=== PATIENT | female | born 1965 | race Caucasian/White ===

== ENCOUNTER 2016-04-24 13:47 | Emergency (ER) | payer BC ==
[~2016-04-24] VITALS: Ht 165.1 cm; Wt 87.2 kg
[~2016-04-24 13:47] MED LIST: BIOT1CAP8 PO; CHOL100010 PO; LAMO100T16 PO; POTASSIUM PO; PRM625 PO
[2016-04-24 13:54] VITALS: TEMP 36.8; Ht 165.1 cm; Wt 87.2 kg
[2016-04-24] MEDS ORDERED: NAPR1CAP12 PO (14:05)
[2016-04-24] MEDS ORDERED: LMC/150 PO (14:05)
[2016-04-24] MEDS ORDERED: VITACAP26 PO (14:05)
[2016-04-24] MEDS ORDERED: LAMO25TA PO (14:05)
[2016-04-24] MEDS ORDERED: ONDANSETRON INJ 2 MG/ML 2 ML VIAL IV STA (14:10)
[2016-04-24] MEDS ORDERED: SODIUM CHLORIDE 0.9% 1000ML 500 ML IV STA (14:10)
[2016-04-24] MEDS ORDERED: NITROGLYCERIN OINT 2% 1GM PACKET EXT STA (14:10)
[2016-04-24 14:19] VITALS: O2SAT 97
[2016-04-24 14:20] LABS: HEMATOCRIT 35.5 % (37-47); MEAN CORPUSCULAR HEMOGLOBIN 28.6 pg (25-34); MEAN CORPUSCULAR HGB CONC 33.2 g/dl (32-36); PLATELET COUNT 168 K/uL (130-400); RED BLOOD COUNT 4.13 M/uL (4.2-5.4); WHITE BLOOD COUNT 5.47 K/uL (4.8-10.8)
--- NOTE | 2016-04-24 14:28 | DIAGNOSTIC IMAGING REPORT ---
CHEST ONE VIEW PORTABLE CLINICAL HISTORY: CHEST PAIN COMPARISON STUDY: 08/24/2014 FINDINGS: The cardiac and mediastinal contours are normal. There is no evidence of focal pulmonary consolidation. There is no evidence of failure. No pleural effusions are visualized.[ IMPRESSION: No active disease in the chest. Electronically signed by: Micky Davidsno M.D. 04/24/2016 2:27 PM Dictated Date/Time: 04/24/2016 2:26 PM
--- NOTE | 2016-04-24 14:34 | EMERGENCY ROOM VISIT NOTE ---
History Report prepared by Fletcher: Sylvain Adams Under the Supervision of: Dr. Hans Swain M.D. First contact with patient: 14:06 Chief Complaint: CARDIAC ASSESSMENT Stated Complaint: TIGHTNESS IN CHEST, PAIN IN BACK, HEARTBURN X3 DAY Nursing Triage Summary: Pt reports pain across breast since Sun. Didn't sleep well Sun night. Mon woke up with pain between shoulder blades. Heartburn x 3 days and abd cramps. "It feels like saran wrap stretched really tight." History of Present Illness The patient is a 51 year old female who presents to the Emergency Room with complaints of persistent chest tightness beginning about 3 days ago. She notes her pain is in the center of her chest, rates her pain a 10/10 this morning, and adds that her pain radiates to her back and shoulder blades. The patient does not recall lifting or twisting recently. She has had trouble sleeping and reports her pain wakes her up at night. She also has felt warm and has had chills at night. The patient states her pain is not worsened with movement or exertion, but that the pain occasionally makes her feels short of breath. She also notes having nausea beginning 4 days ago, especially when eating. She has taken Tums which has worked for short-term relief but not long-term. She reports also taking Excedrin for a headache, and 2 Tylenol PM last night. The patient sits at a desk at work. She admits to a history of a cholecystectomy. She denies any history of previous stress tests. Source of History: patient Onset: 3 days ago Position: chest Symptom Intensity: 10/10 in severity Quality: other (tightness) Timing: other (persistent) Associated Symptoms: + SOB, + abdominal pain, + back pain, + chills, + headache, + nausea Note: The patient notes having shoulder blade pain. Review of Systems See HPI for pertinent positives & negatives. A total of 10 systems reviewed and were otherwise negative. Past Medical & Surgical Medical Problems: (1) Kidney stones (2) Seizures Surgical Problems: (1) History of cholecystectomy (2) History of ureter stent Family History Diabetes mellitus Hypertension Social History Smoking Status: Never Smoker Marital Status: single Housing Status: lives alone Occupation Status: employed Current/Historical Medications Scheduled Biotin (Biotin), 1 CAP PO QAM Cholecalciferol (Vitamin D), 1,000 INTER.UNIT PO QAM Estrogens, Conjugated (Premarin), 0.625 MG PO QAM Lamotrigine (Lamictal), 25 MG PO BID Lamotrigine (Lamictal), 150 MG PO BID Naproxen Sodium (Aleve), 220 MG PO DAILY Omeprazole (Prilosec), 20 MG PO DAILY Ranitidine (Zantac), 150 MG PO BID Vitamins C & E (Vitamin C), 1 CAP PO DAILY Allergies Coded Allergies: Penicillins (Verified Allergy, Mild, PT'S SISTER HAD NEAR- EXPERIENCE , 04/24/16) HAS HAD ROCEPHIN W/O PROBLEM Cephalexin (Verified Allergy, Unknown, unknown, 04/24/16) Ciprofloxacin (Verified Allergy, Unknown, SWELLED UP, 04/24/16) Physical Exam Vital Signs Date Time Temp Pulse Resp B/P Pulse Ox O2 Delivery O2 Flow Rate FiO2 04/24/16 16:47 71 17 143/69 98 04/24/16 16:17 71 17 143/69 98 04/24/16 15:01 74 16 163/71 98 Room Air 04/24/16 14:19 97 Room Air 04/24/16 14:02 74 04/24/16 13:54 36.8 78 18 171/78 100 Room Air Physical Exam GENERAL: Patient is in no acute distress. HEENT: No acute trauma, normocephalic atraumatic, mucous membranes moist, no nasal congestion, no scleral icterus. NECK: No stridor, no adenopathy, no meningismus, trachea is midline. LUNGS: Clear to auscultation bilaterally, no wheeze, no rhonchi, breath sounds equal. HEART: Without murmurs gallops or rubs, regular rate and rhythm. CHEST: Nontender chest wall. ABDOMEN: Soft, tenderness in the epigastrium, bowel sounds positive, no hernias , no peritonitis. EXTREMITIES: No cyanosis or edema, full range of motion of all the joints without pain or difficulty, no signs for acute trauma. NEUROLOGIC: Oriented x 3, no acute motor or sensory deficits, no focal weakness. SKIN: No rash, no jaundice, no diaphoresis. Medical Decision & Procedures ER Provider Diagnostic Interpretation: X-ray results as stated below per interpretation by me and the radiologist: CHEST ONE VIEW PORTABLE FINDINGS: The cardiac and mediastinal contours are normal. There is no evidence of focal pulmonary consolidation. There is no evidence of failure. No pleural effusions are visualized. IMPRESSION: No active disease in the chest. Electronically signed by: Micky Davidson M.D. 04/24/2016 2:27 PM Dictated Date/Time: 04/24/2016 2:[address] ANGIOGRAM OF THE CHEST FINDINGS: Thyroid: Imaged portions of the thyroid gland are normal in size and attenuation. Thoracic aorta: The thoracic aorta is normal in caliber and demonstrates standard 3-vessel arch anatomy. No dissection is seen. Pulmonary vasculature: The pulmonary trunk is normal in caliber. There are no filling defects identified in main, lobar, or segmental pulmonary branches to suggest pulmonary embolus. Heart: The heart is normal in size and configuration, and without pericardial effusion. Lungs and pleural spaces: A 7 mm pulmonary nodule at the right lung base seen on image #124 and a 3 mm right middle lobe pulmonary nodule on image #162 are unchanged from 2012 and of doubtful significance. The lungs and pleural spaces are otherwise clear noting dependent atelectasis. The trachea and central airways are patent. Mediastinum: There is no mediastinal lymphadenopathy. Sheila: Clear. Axillae: There is no axillary lymphadenopathy. Upper abdomen: Cholecystectomy clips are noted. Partially visualized upper abdominal viscera is otherwise within normal limits. Skeletal structures: No lytic or blastic bony lesions are seen. IMPRESSION: 1. There is no evidence of pulmonary embolus in the main, lobar, or segmental pulmonary arteries. 2. The lungs are clear noting dependent atelectasis. 3. Pulmonary nodules at the right lung base are unchanged dating back to 2011 and of doubtful significance. Electronically signed by: Hans Angelo M.D. 04/24/2016 3:49 PM Dictated Date/Time: 04/24/2016 3:44 PM Laboratory Results 04/24/16 14:05 04/24/16 14:05 Test 04/24/16 14:05 04/24/16 14:50 Red Blood Count 4.13 M/uL (4.2-5.4) Mean Corpuscular Volume 86.0 fL (80-100) Mean Corpuscular Hemoglobin 28.6 pg (25-34) Mean Corpuscular Hemoglobin Concent 33.2 g/dl (32-36) RDW Standard Deviation 42.4 fL (36.4-46.3) RDW Coefficient of Variation 13.5 % (11.5-14.5) Mean Platelet Volume 11.0 fL (7.4-10.4) Anion Gap 10.0 mmol/L (3-11) Est Creatinine Clear Calc Drug Dose 118.3 ml/min Estimated GFR () 120.6 Estimated GFR (Non- 104.1 BUN/Creatinine Ratio 30.7 (10-20) Calcium Level 8.9 mg/dl (8.5-10.1) Total Bilirubin 0.1 mg/dl (0.2-1) Aspartate Amino Transf (AST/SGOT) 13 U/L (15-37) Alanine Aminotransferase (ALT/SGPT) 14 U/L (12-78) Alkaline Phosphatase 86 U/L (45-117) Total Creatine Kinase 51 U/L (26-192) Creatine Kinase MB 1.1 ng/ml (0.5-3.6) Creatine Kinase MB Ratio 2.2 (0-3.0) Troponin I < 0.015 ng/ml (0-0.045) Total Protein 6.4 gm/dl (6.4-8.2) Albumin 3.4 gm/dl (3.4-5.0) Globulin 3.0 gm/dl (2.5-4.0) Albumin/Globulin Ratio 1.1 (0.9-2) Lipase 131 U/L (73-393) Prothrombin Time 10.3 SECONDS (9.0-12.0) Prothromb Time International Ratio 1.0 (0.9-1.1) Activated Partial Thromboplast Time 26.1 SECONDS (21.0-31.0) Partial Thromboplastin Ratio 1.0 Laboratory results reviewed by me. Medications Administered Medications (Trade) Dose Ordered Sig/Derek Route Start Time Stop Time Status Last Admin Dose Admin Sodium Chloride (Nss 1000ml) 500 ml @ 999 mls/hr Q31M STAT IV 04/24/16 14:10 04/24/16 14:40 DC 04/24/16 14:16 999 MLS/HR Ondansetron HCl (Zofran Inj) 4 mg NOW STAT IV 04/24/16 14:10 04/24/16 14:11 DC 04/24/16 14:16 4 MG Nitroglycerin (Nitroglycerin 2% Oint) 1 inch NOW STAT EXT 1/10/17 14:10 04/24/16 14:11 DC 04/24/16 14:16 1 INCH Miscellaneous Medication (Gi Cocktail) 24 ml NOW STAT PO 04/24/16 14:56 04/24/16 14:57 DC 04/24/16 14:56 24 ML Al Hydroxide/Mg Hydroxide (Maalox Susp) 30 ml STK-MED ONCE .ROUTE 04/24/16 14:58 04/24/16 14:59 DC 04/24/16 15:02 30 ML Lidocaine HCl (Viscous Lidocaine 2% Soln) 20 ml STK-MED ONCE .ROUTE 04/24/16 14:58 04/24/16 14:59 DC 04/24/16 15:02 20 ML Ranitidine HCl (zANTac TAB) 150 mg NOW STAT PO 04/24/16 16:03 04/24/16 16:04 DC 04/24/16 16:18 150 MG ECG Indication: chest pain Rate (beats per minute): 62 Rhythm: normal sinus Findings: no acute ischemic change, no ectopy ED Course 1406: The patient was evaluated in room A12. A complete history and physical exam was performed. 1410: Ordered Nitroglycerin 1 inch EXT, Zofran Inj 4 mg IV, and NSS 500 ml @ 999 mls/hr IV. 1422: Dr. Bailey will try to do a stress test today as long as the patient's other testing looks fine. 1451: I reassessed the patient. She feels about the same. She thought she was better but then had more trouble when more labs were drawn. 1456: Ordered CI Cocktail 24 ml PO. 1602: I reassessed the patient. She feels better after the GI cocktail. The Nitroglycerin paste is coming off, and I will give Zantac. 1603: Ordered Ranitidine HCl 150 mg PO. 1650: Reevaluated the patient. Discussed results and discharge instructions: She verbalized understanding and agreement. The patient is ready for discharge. Medical Decision Differentials include angina, [place], gastritis or reflux, pancreatitis, musculoskeletal pain, aortic dissection, or PE. There is no leukocytosis or concerning anemia. No significant electrolyte abnormality, kidney failure, hepatitis or pancreatitis. EKG shows a normal sinus rhythm, no ischemia. Cardiac enzyme testing times one is not suggestive of acute cardiac injury. Chest x-ray shows no pneumonia, free air or mediastinal widening. Chest CT shows no PE, no evidence for aortic dissection. The patient was given nitro paste, she had no relief of symptoms. She did receive IV saline and IV Zofran. She was given a GI cocktail with significant relief of her discomfort. She was given oral Zantac. I spoke with the certified welder on-call. The patient was felt safe for discharge with an outpatient stress test this week. The patient is being started on antireflux medications. She will return here for exertional chest pain, shortness of breath or worsening symptoms. Consults Time Called: 1420 Consulting Physician: Dr. Bailey Returned Call: 1422 Dr. Bailey will try to do a stress test today as long as the patient's other testing looks fine. Impression Primary Impression: Epigastric abdominal pain Scribe Attestation The scribe's documentation has been prepared under my direction and personally reviewed by me in its entirety. I confirm that the note above accurately reflects all work, treatment, procedures, and medical decision making performed by me. Departure Information Dispostion Home / Self-Care Prescriptions Omeprazole (Prilosec) 20 Mg Capcr 20 MG PO DAILY, #30 CAP Prov: Hans Swain M.D. 04/24/16 Ranitidine (Zantac) 150 Mg Tab 150 MG PO BID for 14 Days, #28 TAB Prov: Hans Swain M.D. 04/24/16 Referrals Selwyn Diamond D.O. (PCP) Patient Instructions A Signature Page, My [facility] Additional Instructions zantac 2x per day for 2 weeks prilosec daily for 1 month bland diet call and set up cardiology appt for stress test return for worsening pain or symptoms return if symptoms become exertional
[2016-04-24 14:40] LABS: ALT/SGPT 14 U/L (12-78); BLOOD UREA NITROGEN 18 mg/dl (7-18); BUN/CREATININE RATIO 30.7 (10-20); CALCIUM 8.9 mg/dl (8.5-10.1); CARBON DIOXIDE 26 mmol/L (21-32); CHLORIDE 104 mmol/L (98-107); GLUCOSE 108 mg/dl (70-99); POTASSIUM 3.5 mmol/L (3.5-5.1); SODIUM 140 mmol/L (136-145)
[2016-04-24 14:45] LABS: ALB/GLOB RATIO 1.1 (0.9-2); ALKALINE PHOSPHATASE 86 U/L (45-117); AST/SGOT 13 U/L (15-37); CKMB/CK RATIO 2.2 (0-3.0)
[2016-04-24] MEDS ORDERED: GI COCKTAIL PO STA (14:56)
[2016-04-24] MEDS ORDERED: ALUMINUM/MAGNESIUM SUSP 30 ML UDC ONE (14:58)
[2016-04-24] MEDS ORDERED: LIDOCAINE HCL 2% VISC SOLN 20 ML UDC ONE (14:58)
[2016-04-24] MEDS ORDERED: OPTIRAY 320 IV PRN (15:00)
[2016-04-24 15:06] LABS: PROTHROMBIN TIME (PATIENT) 10.3 SECONDS (9.0-12.0)
--- NOTE | 2016-04-24 15:51 | DIAGNOSTIC IMAGING REPORT ---
CT ANGIOGRAM OF THE CHEST CLINICAL HISTORY: Atypical chest pain. COMPARISON STUDY: Chest CT scans dated 08/09/2014 and 06/06/11. TECHNIQUE: Following the IV administration of 108 cc of Optiray 320, CT angiogram of the chest was performed from the upper abdomen to the thoracic inlet utilizing the pulmonary embolus protocol. Images are reviewed in the axial, sagittal, and coronal planes. 3-D MIPS images are created and assessed. IV contrast was administered without complication. CT DOSE: 378.98 mGy.cm FINDINGS: Thyroid: Imaged portions of the thyroid gland are normal in size and attenuation. Thoracic aorta: The thoracic aorta is normal in caliber and demonstrates standard 3-vessel arch anatomy. No dissection is seen. Pulmonary vasculature: The pulmonary trunk is normal in caliber. There are no filling defects identified in main, lobar, or segmental pulmonary branches to suggest pulmonary embolus. Heart: The heart is normal in size and configuration, and without pericardial effusion. Lungs and pleural spaces: A 7 mm pulmonary nodule at the right lung base seen on image #124 and a 3 mm right middle lobe pulmonary nodule on image #162 are unchanged from 2012 and of doubtful significance. The lungs and pleural spaces are otherwise clear noting dependent atelectasis. The trachea and central airways are patent. Mediastinum: There is no mediastinal lymphadenopathy. Sheila: Clear. Axillae: There is no axillary lymphadenopathy. Upper abdomen: Cholecystectomy clips are noted. Partially visualized upper abdominal viscera is otherwise within normal limits. Skeletal structures: No lytic or blastic bony lesions are seen. IMPRESSION: 1. There is no evidence of pulmonary embolus in the main, lobar, or segmental pulmonary arteries. 2. The lungs are clear noting dependent atelectasis. 3. Pulmonary nodules at the right lung base are unchanged dating back to 2011 and of doubtful significance. Electronically signed by: Hans Angelo M.D. 04/24/2016 3:49 PM Dictated Date/Time: 04/24/2016 3:44 PM
[2016-04-24] MEDS ORDERED: RANITIDINE HCL 150 MG TAB PO STA (16:03)
[2016-04-24] MEDS ORDERED: ZNTT/150 PO (16:43)
[2016-04-24] MEDS ORDERED: PRLSR20 PO (16:43)
[2016-04-24 16:47] VITALS: BP 143/69; PULSE 71; O2SAT 98
== END 2016-04-24 16:48 | disposition home or self-care (01) ==
LOC: C.EDB 13:49 → C.EDA 16:48
DX: R10.13 Epigastric pain (principal); G40.909 Epilepsy, unspecified, not intractable, without status epilepticus; Z87.442 Personal history of urinary calculi; Z90.49 Acquired absence of other specified parts of digestive tract; Z79.899 Other long term (current) drug therapy; Z88.0 Allergy status to penicillin; Z88.3 Allergy status to other anti-infective agents; Z83.3 Family history of diabetes mellitus; Z82.49 Family history of ischemic heart disease and other diseases of the circulatory system

== ENCOUNTER 2017-01-07 11:42 | Emergency (ER) | payer BC ==
[~2017-01-07] VITALS: Ht 165.1 cm; Wt 81.1 kg
[~2017-01-07 11:42] MED LIST changes: -LAMO100T16 PO; +LAMO25TA PO; +LMC/150 PO; +NAPR1CAP12 PO; -POTASSIUM PO; +VITACAP26 PO
[2017-01-07 11:48] VITALS: TEMP 36.8; Ht 165.1 cm; Wt 81.1 kg
[2017-01-07] MEDS ORDERED: CYAN500T PO (12:33)
[2017-01-07] MEDS ORDERED: CHOL100027 PO (12:33)
[2017-01-07] MEDS ORDERED: SODIUM CHLORIDE 0.9% 1000ML 1,000 ML IV STA (12:37)
[2017-01-07] MEDS ORDERED: ONDANSETRON INJ 2 MG/ML 2 ML VIAL IV STA (12:37)
[2017-01-07] MEDS ORDERED: OPTIRAY 320 IV PRN (13:00)
[2017-01-07 13:11] LABS: BASO % 0.5 %; BASO ABS # 0.03 K/uL (0-0.2); COMPLETE YES; IG% 0.3 %; LYMPH % 27.3 %; LYMPH ABS # 1.74 K/uL (1.2-3.4); MEAN CELL VOLUME 86.5 fL (80-100); MEAN CORPUSCULAR HEMOGLOBIN 28.4 pg (25-34); MEAN CORPUSCULAR HGB CONC 32.8 g/dl (32-36); MEAN PLATELET VOLUME 11.7 fL (7.4-10.4); MONO % 7.7 %; NEUT % 62.2 %; PLATELET COUNT 192 K/uL (130-400); RED BLOOD COUNT 4.51 M/uL (4.2-5.4); WHITE BLOOD COUNT 6.38 K/uL (4.8-10.8)
[2017-01-07 13:27] LABS: ALT/SGPT 21 U/L (12-78); BLOOD UREA NITROGEN 16 mg/dl (7-18); BUN/CREATININE RATIO 20.9 (10-20); CALCIUM 8.8 mg/dl (8.5-10.1); CARBON DIOXIDE 26 mmol/L (21-32); CHLORIDE 104 mmol/L (98-107); CREATININE 0.75 mg/dl (0.60-1.20); GLUCOSE 107 mg/dl (70-99); POTASSIUM 3.9 mmol/L (3.5-5.1); SODIUM 139 mmol/L (136-145)
[2017-01-07 13:30] LABS: ALKALINE PHOSPHATASE 107 U/L (45-117); AST/SGOT 18 U/L (15-37)
--- NOTE | 2017-01-07 16:35 | DIAGNOSTIC IMAGING REPORT ---
CT ABD/PELVIS IV AND ORAL CONT CLINICAL HISTORY: Left lower quadrant and suprapubic pain. COMPARISON STUDY: 03/13/2016 TECHNIQUE: Following the IV administration of 115 mL of Optiray-320, CT scan of the abdomen and pelvis was performed from the lung bases to the proximal femurs. Images are reviewed in the axial, sagittal, and coronal planes. IV contrast was administered without complication. A dose lowering technique was utilized adhering to the principles of ALARA. CT DOSE: 544.04 mGy.cm FINDINGS: Lower chest: There are minor basilar atelectatic changes. Liver: There is mild hepatic steatosis. No focal masses are visualized. The portal vein and hepatic veins appear patent. Gallbladder: Surgically absent Spleen: Normal in size and attenuation. Pancreas: Unremarkable. Adrenal glands: Unremarkable. Kidneys: There is symmetric renal cortical enhancement. The kidneys are normal in size without hydronephrosis. Bowel: There are no transition zones to indicate bowel obstruction. The appendix appears normal. There is no evidence of acute diverticulitis. Peritoneum: There is no intraperitoneal free air or abdominal ascites. Vasculature: The abdominal aorta is normal in course and caliber. Adenopathy: None. Pelvic viscera: The uterus is surgically absent. There is minimal nonspecific thickening of the anterior supravesical soft tissues. There are no fluid collections to indicate an abscess Skeletal structures: No destructive osseous lesions are seen. IMPRESSION: 1. Mild hepatic steatosis 2. No evidence of bowel obstruction. No evidence of free air 3. Normal appendix. No evidence of acute diverticulitis 4. Surgically absent gallbladder and uterus 5. Minimal nonspecific thickening of the anterior supravesical soft tissues, possibly secondary to prior surgery. Electronically signed by: Micky Davidson M.D. 01/07/2017 4:33 PM Dictated Date/Time: 01/07/2017 4:27 PM
[2017-01-07] MEDS ORDERED: OXYC1TAB3 PO (16:58)
[2017-01-07 17:03] VITALS: BP 129/59; PULSE 77; O2SAT 98
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
--- NOTE | 2017-01-09 18:21 | Pharmacy Progress Note ---
ED Pharmacist Progress Note Date of Service: Jan 09, 2017. Patient called in asking for results of urine culture and reporting new urinary symptoms. After reviewing the chart, it does not appear that a UA or urine culture was preformed. I informed her of this but told her she could absolutely return to the ER for further evaluation or at the very least follow up with her PCP. She acknowledged understanding. I discussed this with Dr. Sullivan.
== END 2017-01-07 17:12 | disposition home or self-care (01) ==
LOC: C.EDB 11:44 → C.EDC 17:12
DX: R10.32 Left lower quadrant pain (principal); Z87.442 Personal history of urinary calculi; R56.9 Unspecified convulsions; Z83.3 Family history of diabetes mellitus; Z82.49 Family history of ischemic heart disease and other diseases of the circulatory system; Z90.710 Acquired absence of both cervix and uterus

== ENCOUNTER 2017-02-11 08:34 | Emergency (ER) | payer BC, OTHER ==
[~2017-02-11 08:34] MED LIST changes: -CHOL100010 PO; +CHOL100027 PO; +CYAN500T PO; +OXYC1TAB3 PO
[2017-02-11 08:40] VITALS: TEMP 36.7
[2017-02-11] MEDS ORDERED: SODIUM CHLORIDE 0.9% 1000ML 1,000 ML IV STA (08:58)
[2017-02-11] MEDS ORDERED: ACETAMINOPHEN 325 MG TAB PO STA (08:58)
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
[2017-02-11 09:39] LABS: BASO % 0.6 %; BASO ABS # 0.03 K/uL (0-0.2); COMPLETE YES; EOS % 2.2 %; IG% 0.4 %; LYMPH % 29.2 %; LYMPH ABS # 1.56 K/uL (1.2-3.4); MEAN CELL VOLUME 86.1 fL (80-100); MEAN CORPUSCULAR HGB CONC 32.5 g/dl (32-36); MEAN PLATELET VOLUME 11.1 fL (7.4-10.4); MONO % 8.2 %; NEUT % 59.4 %; PLATELET COUNT 159 K/uL (130-400); RED BLOOD COUNT 4.18 M/uL (4.2-5.4); WHITE BLOOD COUNT 5.34 K/uL (4.8-10.8)
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
[2017-02-11 09:56] LABS: ALT/SGPT 15 U/L (12-78); BLOOD UREA NITROGEN 15 mg/dl (7-18); BUN/CREATININE RATIO 23.4 (10-20); CALCIUM 8.7 mg/dl (8.5-10.1); CARBON DIOXIDE 28 mmol/L (21-32); CHLORIDE 105 mmol/L (98-107); CREATININE 0.65 mg/dl (0.60-1.20); GLUCOSE 81 mg/dl (70-99); POTASSIUM 3.7 mmol/L (3.5-5.1); SODIUM 140 mmol/L (136-145)
[2017-02-11 09:59] LABS: ALKALINE PHOSPHATASE 101 U/L (45-117); AST/SGOT 12 U/L (15-37)
[2017-02-11] MEDS ORDERED: KETOROLAC TROMETHAMINE 30 MG/ML VIAL IV STA (10:02)
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
[2017-02-11 11:10] VITALS: BP 140/56; PULSE 62; O2SAT 98
== END 2017-02-11 11:10 | disposition home or self-care (01) ==
LOC: C.EDB 08:35 → C.EDA 11:10
DX: S09.90XA Unspecified injury of head, initial encounter (principal); F07.81 Postconcussional syndrome; M79.601 Pain in right arm; V48.5XXA Car driver injured in noncollision transport accident in traffic accident, initial encounter; Y92.413 State road as the place of occurrence of the external cause